=== PATIENT | female | born 1990 | race Hispanic/Latino ===

== ENCOUNTER → 2017-08-12 | Outpatient (CLI) | payer OTHER ==
[2017-08-12 16:45] LABS: Hematocrit 40.1 % (36.0-47.0); White Blood Cell (WBC) Count 7.6 thou/uL (4.8-10.8)
== END ==
LOC: LABBT 15:15
PROVIDERS: ATTEND Obstetrics & Gynecology
DX: Z01.812 Encounter for preprocedural laboratory examination (principal); N81.4 Uterovaginal prolapse, unspecified; R10.2 Pelvic and perineal pain
CPT/HCPCS: 84703; 85027; 86850; 86900; 86901

== ENCOUNTER 2021-04-10 14:55 | Outpatient (CLI) | payer OTHER ==
[2021-04-10 15:55] LABS: Hemoglobin 12.4 g/dL (12.0-15.5); Mean Corpuscular HGB CONC 33.1 g/dL (32.0-36.0); Mean Corpuscular Hemoglobin 30.8 pg (27.0-33.0); Mean Corpuscular Volume 93.3 fl (81.6-98.3); Mean Platelet Volume 10.4 fl (7.4-10.4); Platelet Count 244 10x3/uL (150-450); Red Blood Cell (RBC) Count 4.02 10x6/uL (3.90-5.03); White Blood Cell (WBC) Count 7.7 10x3/uL (3.5-10.5)
[2021-04-10 16:11] LABS: BHCG - Serum Negative (NEGATIVE); Pregs Control Background? CLEAR/WHITE (CLR/WHITE); Pregs Control Bar Appear? YES (CONTROL BAR)
[2021-04-11 06:46] LABS: SARS-CoV-2 PCR by NAA Not Detected (NotDetected)
== END 2021-04-10 14:56 | disposition home or self-care (01) ==
LOC: LABBT 14:55
PROVIDERS: ATTEND Orthopaedic Surgery Hand Surgery
DX: Z01.812 Encounter for preprocedural laboratory examination (principal); M67.431 Ganglion, right wrist; Z20.822 Contact with and (suspected) exposure to COVID-19
CPT/HCPCS: 84703; 85027; U0003; U0005

== ENCOUNTER 2021-04-15 08:51 | Day surgery (SDC) | payer OTHER ==
[2021-04-10 15:23] VITALS: BMI 28.5
[2021-04-15] MEDS ORDERED: Bupivacaine PF 0.5% 30 ML VIAL ONE (11:04)
[2021-04-15] MEDS ORDERED: Neomycin-Polymyxin 1 ML AMP ONE (11:04)
[2021-04-15] MEDS ORDERED: Bacitracin Zinc Ointment 30 gm TUBE ONE (11:04)
[2021-04-15] MEDS ORDERED: Betamet Acet/Betamet Na Ph 30 MG/5 ML VIAL ONE (11:04)
[2021-04-15] MEDS ORDERED: Fentanyl 100 MCG/2 ML VIAL ONE ×2 (11:13→12:43)
[2021-04-15] MEDS ORDERED: PROPOFOL 200 MG/20 ML VIAL ONE (11:27)
[2021-04-15] MEDS ORDERED: Lidocaine 1% PF 5 ML VIAL ONE (11:27)
[2021-04-15] MEDS ORDERED: Ketorolac Tromethamine 30 MG/ML VIAL ONE (12:34)
[2021-04-15] MEDS ORDERED: Ondansetron PF 4 MG/2 ML Vial ONE (12:43)
[2021-04-15] MEDS ORDERED: Promethazine HCl 25 MG/ML VIAL ONE (13:23)
== END 2021-04-15 14:58 | disposition home or self-care (01) ==
LOC: SDC 08:51
PROVIDERS: ATTEND Orthopaedic Surgery Hand Surgery
PROC: 0LB50ZZ Excision of Right Lower Arm and Wrist Tendon, Open Approach (ICD-10-PCS; principal; 2021-04-15)
DX: M67.431 Ganglion, right wrist (principal); Z79.899 Other long term (current) drug therapy
CPT/HCPCS: 88304; J0690; J0702; J1885; J2405; J2550; J2704; J3010; S0020

== ENCOUNTER 2022-07-16 14:07 | Outpatient (CLI) | payer OTHER | END 2022-07-16 14:08 | disposition home or self-care (01) | LOC: ULT 14:07 | PROVIDERS: ATTEND Family Medicine | DX: R10.30 Lower abdominal pain, unspecified (principal); N83.202 Unspecified ovarian cyst, left side | CPT/HCPCS: 76856; 93976 ==